=== PATIENT | male | born 1985 ===

== ENCOUNTER 2024-09-15 22:10 | Emergency (ER) | payer OTHER, MEDICARE ==
[~2024-09-15] VITALS: Ht 182.9 cm; Wt 122.5 kg
== END 2024-09-15 22:25 | disposition home or self-care (01) ==
LOC: ER 22:10
DX: Z48.00 Encounter for change or removal of nonsurgical wound dressing (principal); S81.802A Unspecified open wound, left lower leg, initial encounter; W01.198A Fall on same level from slipping, tripping and stumbling with subsequent striking against other object, initial encounter; F17.290 Nicotine dependence, other tobacco product, uncomplicated
CPT/HCPCS: 99283